=== PATIENT | male | born 1995 | race African-American/Black ===

== ENCOUNTER 2017-03-03 17:57 | Emergency (ER) | payer BC ==
[~2017-03-03 17:57] MED LIST: KEFLEX500 MG PO; TYLENOL #3 PO; [UNRECOGNIZED DRUG - REMARK] PO
[2017-03-03 18:45] LABS: BASOPHIL# 0.1 X10e3 (0-0.3); BASOPHIL% 0.6 % (0-2.5); DIFF IND NO; HEMATOCRIT 41.8 % (38.0-50.0); HEMOGLOBIN 13.9 gm/dL (13.0-16.0); MEAN CELL VOLUME 85.2 FL (83-96); MEAN CORPUSCULAR HEMOGLOBIN 28.2 PG (28-34); MEAN CORPUSCULAR HGB CONC 33.1 g/dL (30-36); MEAN PLATELET VOLUME 7.8 FL (6.5-11.5); MONOCYTE# 0.3 X10e3 (0-1.0); MONOCYTE% 2.8 % (3.0-12.0); NEUTROPHIL# 9.6 X10e3 (1.5-7.1); NEUTROPHIL% 87.6 % (40-75); PLATELET COUNT 269 X10e3 (140-420); RED BLOOD COUNT 4.91 X10e (3.90-5.60)
[2017-03-03 19:02] LABS: BUN/CREATININE RATIO 22.5; CALCIUM SERUM 10.1 mg/dL (8.4-10.2); CREATININE SERUM 0.8 mg/dL (0.6-1.4); POTASSIUM 3.6 mmol/L (3.5-5.1)
[2017-03-03 20:16] LABS: ALBUMIN SERUM 5.4 g/dL (3.5-5.0); BILIRUBIN, DIRECT 0.2 mg/dL (0.0-0.2); BILIRUBIN,INDIRECT 0.6 mg/dL (0.0-0.9); BILIRUBIN,TOTAL 0.8 mg/dL (0.2-2.0); PROTEIN TOTAL SERUM 8.7 g/dL (6.0-8.3)
== END 2017-03-03 20:33 | disposition home or self-care (01) ==
LOC: SED 17:57
PROVIDERS: Physician Assistant
DX: K29.20 Alcoholic gastritis without bleeding (principal); K29.00 Acute gastritis without bleeding; F90.9 Attention-deficit hyperactivity disorder, unspecified type; F17.210 Nicotine dependence, cigarettes, uncomplicated
CPT/HCPCS: 36415; 80048; 80076; 83690; 85025; 96361; 96372; 96374; 96375; 99284; C9113; J0500; J2405